=== PATIENT | female | born 1985 | race Caucasian/White ===

== ENCOUNTER 2024-12-13 17:00 | Emergency (ER) | payer MEDICAID ==
[2024-12-13] MEDS ORDERED: Sodium Chloride 0.9% 10 ML Syringe FLUSH PRN (17:08)
[2024-12-13] MEDS: EPINEPHrine 1 MG/1 ML Amp IM ONE (17:17)
[2024-12-13] MEDS: diphenhydrAMINE 50 MG/ML SDV IVPUSH ONE (17:28)
[2024-12-13] MEDS: methylPREDNISolone Sodium Succinate 125 MG/2 ML SDV IVPUSH ONE (17:29)
[2024-12-13] MEDS: Famotidine 20 MG/2 ML SDV IVPUSH ONE (17:31)
== END 2024-12-13 18:49 | disposition home or self-care (01) ==
LOC: SUPCPDRO 17:00 → VM.ED 17:00
DX: L50.9 Urticaria, unspecified (principal); L25.9 Unspecified contact dermatitis, unspecified cause; Z88.5 Allergy status to narcotic agent; Z88.8 Allergy status to other drugs, medicaments and biological substances; Z91.040 Latex allergy status; Z79.899 Other long term (current) drug therapy
CPT/HCPCS: 96372; 96374; 96375; 99283-25; J1200; J2919

== ENCOUNTER 2025-04-14 00:02 | Emergency (ER) | payer MEDICAID ==
[2025-04-14] MEDS: Ketorolac 30 MG/ML SDV IM ONE (00:34)
== END 2025-04-14 01:14 | disposition home or self-care (01) ==
LOC: VM.ED 00:02
DX: S80.01XA Contusion of right knee, initial encounter (principal); F17.210 Nicotine dependence, cigarettes, uncomplicated; Z91.040 Latex allergy status; Z88.5 Allergy status to narcotic agent; Z79.899 Other long term (current) drug therapy; W18.40XA Slipping, tripping and stumbling without falling, unspecified, initial encounter; Y93.01 Activity, walking, marching and hiking
CPT/HCPCS: 73560-RT; 96372; 99283; J1885